=== PATIENT | male | born 1990 | race Caucasian/White ===

== ENCOUNTER 2016-08-30 20:36 | Emergency (ER) | payer BC, MEDICAID ==
[~2016-08-30] VITALS: Wt 59.0 kg
--- NOTE | 2016-08-30 22:35 | ERD ---
ER Documentation Chief Complaint Date/Time DATE: 08/30/16 TIME: 22:33 Chief Complaint head injury, part stage fell on pt HPI This is a 25-year-old male presenting to the emergency department for headache after head injury. Patient states he injured a head injury while working earlier today around 10 AM. Patient was working when a large piece of wood/ steel fell landing on the right side of his head/temporal area. Patient denies any loss of consciousness. No nausea or vomiting. No visual changes or loss of vision. No floaters, halos or they will/curtain coming down over eyes. No increased lethargy or change in mood or behavior. Patient states she does have a headache and rates pain 10/10. Patient denies this being the worst headache he has ever experienced. Patient does have history of sinus headaches and is not sure if this headache is related to that or head injury. No fevers or chills. ROS All systems reviewed and are negative except as per history of present illness. Allergies Allergies: Coded Allergies: No Known Allergy (Unverified , 08/30/16) PMhx/Soc Medical and Surgical Hx: pt denies Surgical Hx History of Surgery: No Anesthesia Reaction: No Hx Neurological Disorder: No Hx Respiratory Disorders: Yes (asthma) Hx Cardiac Disorders: No Hx Psychiatric Problems: No Hx Miscellaneous Medical Probl: No Hx Alcohol Use: No Hx Substance Use: No Hx Tobacco Use: No Smoking Status: Current every day smoker Physical Exam Vitals Vital Signs Date Time Temp Pulse Resp B/P Pulse Ox O2 Delivery O2 Flow Rate FiO2 08/30/16 21:30 98.1 57 20 119/75 99 Physical Exam Const: No acute distress, alert Head: Atraumatic Eyes: Normal Conjunctiva. PERRLA. EOMs intact. ENT: Normal External Ears, Nose and Mouth. Neck: Full range of motion..~ No meningismus. Resp: Clear to auscultation bilaterally. No wheezing, rhonchi or crackles. Cardio: Regular rate and rhythm, no murmurs Abd: Soft, non tender, non distended. Normal bowel sounds Skin: No petechiae or rashes Back: No midline or flank tenderness Ext: No cyanosis, or edema Neur: Awake and alert Psych: Normal Mood and Affect Procedures/MDM DIAGNOSTIC IMAGING REPORT Patient: TY FUENTES : 1990 Age: 25 Sex: M MR #: [id number] [facility] #: [id number] DOS: 08/30/16 2225 Ordering MD: BREANNA GARZA NP Location: [facility] Room/Bed: PROCEDURE: CT brain without contrast CLINICAL INDICATION: Post traumatic headaches TECHNIQUE: A CT of the brain was performed utilizing axial sections from the skull base through the vertex without contrast. Sagittal and coronal images were also reformatted. The exam CTDIvol = 45.01 mGy and DLP = 720.23 mGy-cm. COMPARISON: None available FINDINGS: No acute intracranial hemorrhage is identified. There is no mass effect or midline shift. No extra-axial fluid collection is seen. The ventricles and sulci are within normal limits for size and configuration. The density of the brain is within normal limits. De Jesus-white differentiation is preserved. The osseous structures are unremarkable. The mastoid air cells and visualized paranasal sinuses are clear. RPTAT:HJJR IMPRESSION: Unremarkable noncontrast CT of the brain. MDM: 25-year-old male presents emergency department with headache after head injury earlier today. Vitals are stable. Patient denies any loss of consciousness. No nausea or vomiting. Patient rating pain 10/10. Patient did not take any medications at home. Patient states he does have history of sinus type headaches. CT head was ordered. CT head reviewed by radiologist is unremarkable. Patient remains alert and oriented to person place and time. Patient smiling and laughing upon reassessment. No neuro deficits. Low suspicion for intracranial hemorrhage or CVA. Diagnosis is head injury. Patient is appropriate for outpatient management and encouraged to take Tylenol or Motrin as needed for headache. Follow-up with primary care provider in the next 2-3 days for reassessment. Return to ED for any high fever, chest pain, difficulty breathing, shortness breath, wheezing, vomiting, diarrhea, abdominal pain or any new or worsening symptoms. Patient verbalizes understanding. All questions answered at discharge. Departure Diagnosis: Primary Impression: Acute head injury Condition: Stable BREANNA GARZA NP Aug 30, 2016 22:35
--- NOTE | 2016-08-30 22:59 | RADRPT ---
PROCEDURE: CT brain without contrast CLINICAL INDICATION: Post traumatic headaches TECHNIQUE: A CT of the brain was performed utilizing axial sections from the skull base through th e vertex without contrast. Sagittal and coronal images were also reformatted. The exam CTDIvol = 45. 01 mGy and DLP = 720.23 mGy-cm. COMPARISON: None available FINDINGS: No acute intracranial hemorrhage is identified. There is no mass effect or midline shift. No extra -axial fluid collection is seen. The ventricles and sulci are within normal limits for size and con figuration. The density of the brain is within normal limits. De Jesus-white differentiation is preser jl. The osseous structures are unremarkable. The mastoid air cells and visualized paranasal sinuses are clear. RPTAT:HJJR IMPRESSION: Unremarkable noncontrast CT of the brain. Physician Barbara Date Time Electronically viewed and signed by Physician Barbara on 08/30/2016 22:59 /
== END 2016-08-30 23:30 | disposition home or self-care (01) ==
LOC: FTE 20:36
DX: S09.90XA Unspecified injury of head, initial encounter (principal); J45.909 Unspecified asthma, uncomplicated; F17.210 Nicotine dependence, cigarettes, uncomplicated; R51 Headache; W20.8XXA Other cause of strike by thrown, projected or falling object, initial encounter; Y92.9 Unspecified place or not applicable
CPT/HCPCS: 70450

== ENCOUNTER 2017-02-25 14:31 | Emergency (ER) | payer MEDICAID, OTHER ==
[~2017-02-25] VITALS: Wt 62.3 kg
[2017-02-25] MEDS ORDERED: ALBU18HF INHALATION (16:21)
--- NOTE | 2017-02-25 16:25 | ERD ---
ER Documentation Chief Complaint Chief Complaint albuterol refill HPI 26-year-old presents for a refill of his albuterol inhaler. Been using it extremity because of the smoke in the area. He does not have any shortness of breath currently has no symptoms his asthma which she has had since he was a child. ROS All systems reviewed and are negative except as per history of present illness. Medications Home Meds Active Scripts Albuterol Sulfate* (Ventolin HFA*) 18 Gm Hfa.aer.ad, 2 PUFF INHALATION Q4H, #1 INHALER 2 Refills Prov:KARYN AKINS DO 02/25/17 Allergies Allergies: Coded Allergies: No Known Allergy (Unverified , 08/30/16) PMhx/Soc History of Surgery: No Anesthesia Reaction: No Hx Neurological Disorder: No Hx Respiratory Disorders: Yes (asthma) Hx Cardiac Disorders: No Hx Psychiatric Problems: No Hx Miscellaneous Medical Probl: No Hx Alcohol Use: No Hx Substance Use: No Hx Tobacco Use: No Physical Exam Vitals Vital Signs Date Time Temp Pulse Resp B/P Pulse Ox O2 Delivery O2 Flow Rate FiO2 02/25/17 14:39 98.6 87 20 125/67 98 Physical Exam Const: [] No distress ENT: Normal External Ears, Nose and Mouth. Resp: Clear to auscultation bilaterally Cardio: Regular rate and rhythm, no murmurs, awake and alert Psych: Normal Mood and Affect Procedures/MDM Simple medication refill without symptoms. Clear lungs. Primary care follow- up in 2-3 days and discharging with Ventolin inhaler. Departure Diagnosis: Primary Impression: Encounter for medication refill Condition: Stable Patient Instructions: Asthma, Acute (Adult) Referrals: DOCTOR,NOT ON STAFF Additional Instructions: Call your primary care doctor TOMORROW for an appointment during the next 2-3 days.See the doctor sooner or return here if your condition worsens before your appointment time. KARYN AKINS DO Feb 25, 2017 16:25
== END 2017-02-25 16:43 | disposition home or self-care (01) ==
LOC: FTE 14:31 → E/R 16:43
DX: Z76.0 Encounter for issue of repeat prescription (principal); J45.909 Unspecified asthma, uncomplicated
CPT/HCPCS: 99281